=== PATIENT | male | born 1965 | race Caucasian/White ===

== ENCOUNTER 2017-04-18 22:32 | Emergency (ER) | payer OTHER ==
[~2017-04-18] VITALS: Ht 182.9 cm; Wt 103.8 kg
[2017-04-19] MEDS ORDERED: NORCO 5/3251 TABLET PO (00:16)
[2017-04-19 00:36] VITALS: BP 122/80
== END 2017-04-19 00:37 | disposition home or self-care (01) ==
LOC: EME 22:32
DX: S93.602A Unspecified sprain of left foot, initial encounter (principal); R60.1 Generalized edema; Z88.6 Allergy status to analgesic agent
CPT/HCPCS: 73630; 99281; 99284